=== PATIENT | female | born 1965 | race Caucasian/White ===

== ENCOUNTER → 2023-09-05 | Day surgery (SDC) | payer BC ==
[~2023-09-05] MED LIST: ASPIRIN EC81 MG PO; B COMPLEX1 EACH PO; COLLAGEN PLUS1 EACH PO; HYOSCYAMINE SULFATE 0.5 MG/ML INJ ONE; L-CARNITINE500 M1 PO; LACTATED RINGER'S 1,000 ML ONE; LIDOCAINE HCL 2% LOCAL INJ 5 ML SDV VIAL INJ ONE; MULTI-VITAMIN1 EACH PO; PROPOFOL IV EMULSION 10 MG/ML 20 ML VIAL ONE; VITAMIN D3 COM1 EACH PO; VITAMIN E400 UNI1 PO
[2023-09-05 09:26] VITALS: TEMP 97.4
[2023-09-05 09:45] VITALS: BP 104/70; PULSE 78; RESP 17; O2SAT 100
== END | disposition home or self-care (01) ==
LOC: OR 07:19
PROVIDERS: ATTEND Internal Medicine Gastroenterology
DX: Z12.11 Encounter for screening for malignant neoplasm of colon (principal); K63.5 Polyp of colon; K52.9 Noninfective gastroenteritis and colitis, unspecified; A69.20 Lyme disease, unspecified; R03.0 Elevated blood-pressure reading, without diagnosis of hypertension; Z01.810 Encounter for preprocedural cardiovascular examination; Z79.899 Other long term (current) drug therapy; Z79.82 Long term (current) use of aspirin
CPT/HCPCS: 45380; 45385; 93005; J1980; J2001; J2704; J7121; 45378